=== PATIENT | male | born 1980 | race Caucasian/White ===

== ENCOUNTER 2024-11-23 09:39 | Inpatient (IN) | payer MEDICAID ==
[~2024-11-23] VITALS: Ht 162.6 cm; Wt 102.5 kg
[2024-11-23] MEDS: IV NS 0.9% 1,000 ML BAG IV ONE (11:00)
[2024-11-23 12:05] LABS: BASOPHILS % (AUTO) 0.6 % (0.0-2.0); EOSINOPHILS # (AUTO) 0.4 K/uL (0.0-0.7); EOSINOPHILS % (AUTO) 5.3 % (0.0-6.0); HEMATOCRIT 46 % (39-51); HEMOGLOBIN 15.4 g/dL (13.5-17.5); LYMPHOCYTES # (AUTO) 2.4 K/uL (0.8-4.8); LYMPHOCYTES % (AUTO) 29.9 % (20.0-44.0); MEAN CORPUSCULAR HEMOGLOBIN 31 PG (26.0-33.0); MEAN CORPUSCULAR HGB CONC 34 g/dl (31.0-36.0); MEAN CORPUSCULAR VOLUME 91 fL (80-96); MONOCYTES # (AUTO) 0.6 K/uL (0.1-1.30); NEUTROPHILS # (AUTO) 4.6 K/uL (1.8-8.9); NEUTROPHILS % (AUTO) 57.2 % (43.0-81.0); PLATELET COUNT (AUTO) 188 K/uL (150-450); RED BLOOD CELL COUNT(AUTO) 5.02 MIL/uL (4.5-6.0); RED CELL DISTRIBUTION WIDTH 13.7 % (11.5-15.0); WHITE BLOOD COUNT (AUTO) 8.1 K/uL (4.3-11.0)
[2024-11-23 12:11] LABS: CREATININE 0.8 mg/dL (0.6-1.3); POTASSIUM 3.8 mmol/L (3.5-5.1)
[2024-11-23 12:16] LABS: ALBUMIN 3.9 g/dL (3.4-5.0); BILIRUBIN,TOTAL 0.4 mg/dL (0.2-1.0); TOTAL PROTEIN, SERUM 7.8 g/dL (6.4-8.2)
[2024-11-23] MEDS ORDERED: LORATADINE 10 MG TABLET ONE (13:19)
[2024-11-23] MEDS: LORATADINE 10 MG TABLET PO SCH (13:22)
[2024-11-23] MEDS ORDERED: ALBUTEROL FS 2.5 MG/3 ML VIAL.NEB ONE (13:35)
[2024-11-23] MEDS: ALBUTEROL FS 2.5 MG/3 ML VIAL.NEB NEB ONE (13:40)
[2024-11-23 13:42] VITALS: O2SAT 98
[2024-11-23 13:46] VITALS: O2SAT 100
[2024-11-23 14:07] LABS: APPEARANCE,URINE CLEAR (CLEAR); BILIRUBIN,URINE NEGATIVE (NEGATIVE); BLOOD, URINE NEGATIVE Ery/uL (NEGATIVE); COLOR,URINE YELLOW (YELLOW); KETONES,URINE NEGATIVE (NEGATIVE); LEUKOCYTE ESTERASE ,URINE NEGATIVE (NEGATIVE); NITRITE, URINE NEGATIVE (NEGATIVE); PROTEIN,URINE NEGATIVE (NEGATIVE); UGLUCOSE NEGATIVE (NEGATIVE); UROBILINOGEN,URINE 0.2 EU/dL (0.2)
[2024-11-23 14:13] LABS: AMPHETAMINE, URINE NEGATIVE (NEGATIVE); BARBITURATE, URINE NEGATIVE (NEGATIVE); BENZODIAZEPINE, URINE NEGATIVE (NEGATIVE); CANNABINOID, URINE POSITIVE (NEGATIVE); COCCAINE, URINE NEGATIVE (NEGATIVE); OPIATE, URINE NEGATIVE (NEGATIVE); PHENCYCLIDINE SCREEN,URINE NEGATIVE (NEGATIVE)
[2024-11-23] MEDS ORDERED: ONDANSETRON HCL/PF 4 MG/2 ML VIAL IVP PRN (14:30)
[2024-11-23] MEDS ORDERED: Z GUARD REMEDY 4 OZ OINT TP PRN (14:30)
[2024-11-23] MEDS ORDERED: MAG HYDROX/AL HYDROX/SIMETH 30 ML UDC PO PRN (14:30)
[2024-11-23] MEDS ORDERED: ALBUTEROL FS 2.5 MG/3 ML VIAL.NEB NEB PRN (14:30)
[2024-11-23] MEDS ORDERED: LEVO150T PO (15:32)
[2024-11-23] MEDS ORDERED: GABA-536 PO ×2 (15:32)
[2024-11-23] MEDS ORDERED: ALBU18HF2 IH (15:32)
[2024-11-23] MEDS ORDERED: CLON0.5T4 PO (15:32)
[2024-11-23] MEDS ORDERED: ARIP30TA3 PO (15:32)
[2024-11-23] MEDS ORDERED: [UNRECOGNIZED DRUG - CODE] BC (15:32)
[2024-11-23] MEDS ORDERED: METH36TA PO (15:32)
[2024-11-23] MEDS ORDERED: DULO20CA PO (15:32)
[2024-11-23] MEDS: IV 1/2NS 1000 ML 1,000 ML IV PRN (15:44)
[2024-11-23 16:00] VITALS: BP 124/80; TEMP 97.3; O2SAT 96
[2024-11-23] MEDS: NICOTINE PATCH (14MG) 14 MG PATCH.TD24 TD SCH (17:03)
[2024-11-23 20:00] VITALS: BP 131/85; TEMP 97.5; O2SAT 96
[2024-11-23] MEDS: ZOLPIDEM TARTRATE 5 MG TABLET PO PRN (22:07)
[2024-11-24 04:00] VITALS: BP 103/73; TEMP 97.7; O2SAT 96
[2024-11-24 07:06] LABS: BASOPHILS % (AUTO) 0.8 % (0.0-2.0); EOSINOPHILS # (AUTO) 0.4 K/uL (0.0-0.7); EOSINOPHILS % (AUTO) 7.2 % (0.0-6.0); HEMATOCRIT 45 % (39-51); HEMOGLOBIN 14.5 g/dL (13.5-17.5); LYMPHOCYTES # (AUTO) 2.5 K/uL (0.8-4.8); LYMPHOCYTES % (AUTO) 42.6 % (20.0-44.0); MEAN CORPUSCULAR HEMOGLOBIN 30 PG (26.0-33.0); MEAN CORPUSCULAR HGB CONC 32 g/dl (31.0-36.0); MEAN CORPUSCULAR VOLUME 93 fL (80-96); MONOCYTES # (AUTO) 0.5 K/uL (0.1-1.30); NEUTROPHILS # (AUTO) 2.4 K/uL (1.8-8.9); NEUTROPHILS % (AUTO) 40.4 % (43.0-81.0); PLATELET COUNT (AUTO) 177 K/uL (150-450); RED BLOOD CELL COUNT(AUTO) 4.84 MIL/uL (4.5-6.0); RED CELL DISTRIBUTION WIDTH 13.6 % (11.5-15.0); WHITE BLOOD COUNT (AUTO) 5.8 K/uL (4.3-11.0)
[2024-11-24 07:39] LABS: CALCIUM, SERUM 8.7 mg/dL (8.5-10.1); CREATININE 0.9 mg/dL (0.6-1.3); MAGNESIUM 2.4 mg/dL (1.8-2.4); PHOSPHORUS 3.6 mg/dL (2.5-4.9); POTASSIUM 4.1 mmol/L (3.5-5.1)
[2024-11-24 12:07] VITALS: BP 104/72; TEMP 97.5; O2SAT 97
[2024-11-24] MEDS ORDERED: NICOTINE POLACRILEX 2 MG LOZENGE BC PRN (17:30)
[2024-11-24] MEDS ORDERED: ALBUTEROL FS 2.5 MG/3 ML VIAL.NEB IH PRN (17:30)
[2024-11-24 18:00] VITALS: BP 133/69; TEMP 97.7; O2SAT 97
[2024-11-24] MEDS: clonazePAM 0.5 MG TABLET PO PRN (18:15)
[2024-11-24] MEDS: ACETAMINOPHEN 325 MG TABLET PO PRN (21:10)
[2024-11-24] MEDS: GABAPENTIN 400 MG CAPSULE PO SCH (22:21)
[2024-11-25] VITALS: BP 121/73; TEMP 98.4; O2SAT 96
[2024-11-25] MEDS: MAGNESIUM HYDROXIDE 30 ML UDC PO PRN (01:28)
[2024-11-25 06:32] LABS: BASOPHILS % (AUTO) 0.4 % (0.0-2.0); EOSINOPHILS # (AUTO) 0.3 K/uL (0.0-0.7); EOSINOPHILS % (AUTO) 5.8 % (0.0-6.0); HEMATOCRIT 45 % (39-51); HEMOGLOBIN 15.3 g/dL (13.5-17.5); LYMPHOCYTES # (AUTO) 0.9 K/uL (0.8-4.8); LYMPHOCYTES % (AUTO) 18.9 % (20.0-44.0); MEAN CORPUSCULAR HEMOGLOBIN 31 PG (26.0-33.0); MEAN CORPUSCULAR HGB CONC 34 g/dl (31.0-36.0); MEAN CORPUSCULAR VOLUME 92 fL (80-96); MONOCYTES # (AUTO) 0.5 K/uL (0.1-1.30); MONOCYTES % (AUTO) 10.5 % (2.0-12.0); NEUTROPHILS # (AUTO) 3.2 K/uL (1.8-8.9); NEUTROPHILS % (AUTO) 64.4 % (43.0-81.0); PLATELET COUNT (AUTO) 146 K/uL (150-450); RED BLOOD CELL COUNT(AUTO) 4.91 MIL/uL (4.5-6.0); RED CELL DISTRIBUTION WIDTH 13.7 % (11.5-15.0)
[2024-11-25] MEDS: LEVOTHYROXINE SODIUM 75 MCG TABLET PO SCH (06:33)
[2024-11-25 07:09] LABS: CALCIUM, SERUM 8.9 mg/dL (8.5-10.1); MAGNESIUM 2.4 mg/dL (1.8-2.4); PHOSPHORUS 3.8 mg/dL (2.5-4.9); POTASSIUM 3.8 mmol/L (3.5-5.1)
[2024-11-25 08:00] VITALS: BP 137/82; TEMP 98.6; O2SAT 96
[2024-11-25] MEDS: DULOXETINE HCL 20 MG CAPSULE.DR PO SCH (08:32)
[2024-11-25] MEDS: ARIPIPRAZOLE 30 MG PO SCH (08:32)
[2024-11-25] MEDS: GABAPENTIN 400 MG CAPSULE PO SCH (08:32)
[2024-11-25] MEDS: METHYLPHENIDATE 36 MG PO SCH (08:33)
[2024-11-25] MEDS: NICOTINE PATCH (14MG) 14 MG PATCH.TD24 TD SCH (09:33)
== END 2024-11-25 15:08 | disposition home or self-care (01) | DRG 351 ==
LOC: ER 09:43 → MEDSG1 15:22 → EDBD 15:22
PROVIDERS: ADMIT Student in an Organized Health Care Education/Training Program; ATTEND Student in an Organized Health Care Education/Training Program
DX: M62.82 Rhabdomyolysis (principal); E03.9 Hypothyroidism, unspecified; Z72.0 Tobacco use; J45.909 Unspecified asthma, uncomplicated; R26.2 Difficulty in walking, not elsewhere classified; W18.30XA Fall on same level, unspecified, initial encounter; Y92.009 Unspecified place in unspecified non-institutional (private) residence as the place of occurrence of the external cause; Z79.899 Other long term (current) drug therapy; Z79.890 Hormone replacement therapy
CPT/HCPCS: 36415; 80048-TC; 80053-TC; 82550-TC; 82553; 83735-TC; 84100-TC; 85025-TC; 97110-TC; 97116-TC; 97530-TC; 97535-TC; A4223; G0378; J3490

== ENCOUNTER 2024-12-14 13:08 | Emergency (ER) | payer MEDICAID ==
[~2024-12-14] VITALS: Ht 162.6 cm; Wt 102.5 kg
[~2024-12-14 13:08] MED LIST: ALBU18HF2 IH; CLON0.5T4 PO; DULO20CA PO; GABA-536 PO; LEVO150T PO; METH36TA PO; [UNRECOGNIZED DRUG - CODE] BC
[2024-12-14] MEDS: HYDROCODONE/APAP 10/325MG TABLET PO ONE (13:34)
[2024-12-14 14:59] VITALS: BP 128/76; TEMP 98.3; O2SAT 98
== END 2024-12-14 14:59 | disposition home or self-care (01) ==
LOC: ER 13:17
DX: S62.115A Nondisplaced fracture of triquetrum [cuneiform] bone, left wrist, initial encounter for closed fracture (principal); E03.9 Hypothyroidism, unspecified; J45.909 Unspecified asthma, uncomplicated; M25.522 Pain in left elbow; F19.10 Other psychoactive substance abuse, uncomplicated; Z79.899 Other long term (current) drug therapy; Z88.6 Allergy status to analgesic agent; W01.0XXA Fall on same level from slipping, tripping and stumbling without subsequent striking against object, initial encounter; Y93.89 Activity, other specified; Y92.89 Other specified places as the place of occurrence of the external cause; Y99.8 Other external cause status
CPT/HCPCS: 73080-TC; 73090-TC; 73110; 73130-TC